=== PATIENT | male | born 1960 | race Caucasian/White ===

== ENCOUNTER 2016-11-27 20:55 | Emergency (ER) | payer OTHER ==
[~2016-11-27 20:55] MED LIST: ATIVAN0.5 M1 PO; ATORVASTATIN CA20 M1 PO; ESCITALOPRAM OX10 MG PO; FENOFIBRIC ACI135 M1 PO; FOLIC ACID1 M1 PO; HALOPERIDOL1 M1 PO; LEVOTHYROXINE200 MC1 PO; LORAZEPAM1 M1 PO; LOSARTAN POTASS50 M1 PO; METFORMIN HCL500 M4 PO; NALTREXONE HCL50 M1 PO; OMEPRAZOLE20 M2 PO; ONE DAILY MULT1 EAC2 PO; SLOW-MAG71.5 MG PO; TRAZODONE HCL50 M1 PO; VITAMIN B-1100 MG PO
--- NOTE | 2016-11-27 20:57 | ED PSYCHIATRIC COMPLAINT ---
History of Present Illness General Chief Complaint: ETOH/Drug Related Complaint Stated Complaint: ETOH Source: patient Exam Limitations: no limitations Vital Signs & Intake/Output Vital Signs & Intake/Output Vital Signs Date Time Temp Pulse Resp B/P Pulse O2 O2 Flow FiO2 Ox Delivery Rate 11/28 0607 98.6 100 18 166/75 95 Room Air 11/28 0236 112 18 147/77 11/28 0129 99.1 115 18 164/89 11/28 0109 99.1 115 18 164/89 96 Room Air 11/27 2242 99.1 90 18 145/70 97 Room Air 11/27 2118 Room Air 11/27 2101 98.3 116 16 142/75 97 Room Air Allergies Coded Allergies: shellfish derived (Severe, STOMACH ACHES 06/27/16) Reconcile Medications Atorvastatin Calcium 20 MG TABLET 1 TAB PO DAILY HEART HEALTH (Reported) Fenofibric Acid (Choline) (Fenofibric Acid) 135 MG CAPSULE.DR 1 CAP PO DAILY SUPPLEMENT (Reported) Levothyroxine Sodium (Synthroid) 300 MCG TABLET 1 TAB PO DAILY THYROID HEALTH (Reported) Metformin HCl (Metformin HCl ER) 500 MG TAB.ER.24H 2 TAB PO BID DIABETES ( Reported) Naltrexone HCl 50 MG TABLET 1 TAB PO DAILY UNKNOWN (Reported) Triage Note: PT BIBA FROM HOME FOR ETOH INTOXICATION. PT'S CALLED ER AHEAD OF TRANSPORT. PT DENIES SI/HI. PT IS CALM AND COOPERATIVE AT THIS TIME. Triage Nurses Notes Reviewed? yes Onset: Abrupt Duration: hour(s): (FEW) Timing: single episode today Severity: moderate Associated Symptoms: INTOXICATED HPI: 56 year old male history of alcoholism, previous attempt of suicide in June 2016 he presents via EMS from home for chief complaint of alcohol intoxication. Admits to drinking 1 pint daily for the last 5 days. He denies feeling suicidal or homicidal. Denies any pill ingestion. He states that his called because he was intoxicated. 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 He states his alcoholism is not interrupted with his day-to-day work. (VICENTA HARDY,LATESHA) Past History Medical History Any Pertinent Medical History? 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 No (LATESHA FORD MD) Review of Systems Review of Systems Constitutional: Denies: chills, fever. EENTM: Reports: no symptoms. Respiratory: Reports: no symptoms. Cardiovascular: Denies: chest pain. GI: Denies: abdominal pain. Genitourinary: Reports: no symptoms. Musculoskeletal: Reports: no symptoms. Skin: Reports: no symptoms. Neurological/Psychological: Denies: anxiety, depressed. Hematologic/Endocrine: Denies: bruising, bleeding, polyuria, polydipsia. Immunologic/Allergic: Denies: splenectomy. All Other Systems: Reviewed and Negative (LATESHA FORD MD) Physical Exam Physical Exam General Appearance: well developed/nourished, alert, awake, mild distress, intoxicated Head: atraumatic Eyes: Bilateral: PERRL, EOMI. Ears, Nose, Throat: normal pharynx, normal ENT inspection, hearing grossly normal Neck: normal inspection, supple Respiratory: normal breath sounds Cardiovascular: regular rate/rhythm Gastrointestinal: soft, non-tender Extremities: normal range of motion Neurological/Psychiatric: awake, alert, calm Appearance/Memory/Insight: disheveled, impaired insight Behavoir/Eye Contact/Speech: cooperative, decreased rate of speech, good eye contact Thoughts/Hallucinations: no apparent hallucination Skin: intact, normal color, warm/dry SAD PERSONS Done? patient not suicidal (LATESHA FORD MD) Progress Differential Diagnosis: ALCOHOL ABUSE, ALCOHOL INTOXICATION Plan of Care: Orders Procedure Date/time Status Regular Diet 11/28 B Active URINE DRUGS OF ABUSE 11/27 2121 Complete ACETOMINOPHEN 11/27 2121 Complete SALICYLATE 11/27 2121 Complete ETHANOL 11/27 2121 Complete COMPREHENSIVE METABOLIC PANEL 11/27 2121 Complete CBC WITHOUT DIFFERENTIAL 11/27 2121 Complete Laboratory Tests 11/27/162131: Anion Gap 16, Estimated GFR > 60, BUN/Creatinine Ratio 19.0, Glucose 142 H, Calcium 9.8, Total Bilirubin 0.8, AST 103 H, ALT 76 H, Alkaline Phosphatase 57 , Total Protein 7.2, Albumin 4.4, Globulin 2.8, Albumin/Globulin Ratio 1.6, CBC w Diff NO MAN DIFF REQ, RBC 5.28, MCV 89.4, MCH 30.6, RDW 12.7, MPV 6.2 L, Gran % 73.5, Lymphocytes % 19.5 L, Monocytes % 5.3, Eosinophils % 1.3, Basophils % 0.4, Absolute Granulocytes 7.5 H, Absolute Lymphocytes 2.0, Absolute Monocytes 0.5, Absolute Eosinophils 0.1, Absolute Basophils 0, PUBS MCHC 34.3, Salicylates < 1.0, Acetaminophen < 10.0 L, Serum Alcohol 407.0 11/27/165: Urine Opiates Screen < 100.00, Methadone Screen < 40, Barbiturate Screen < 60, Ur Phencyclidine Scrn < 6.00, Amphetamines Screen < 100, U Benzodiazepines Scrn < 85, Urine Cocaine Screen < 50, Urine Cannabis Screen < 5.00 LABS ORDERED. PATIENT DENIES SI/HI. HE SPECIFICALLY DENIES ANY OVERDOSE. ALCOHOL 400. PATIENT REQUESTING SOMETHING TO HELP HIM SLEEP. ATIVAN 2 MG GIVEN. STILL AWAKE, BENADRYL 50 MG ORDERED. 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 The patient is currently awake alert and exhibits a stable gait. His speech is clear and he is without specific complaint. He denies SI or HI. He declined further evaluation here in the emergency department. He wishes to return home. He will take a cab. He states his refused to pick him up but he can stay in and in-laws apartment temporarily in case tempers flare at home. (TERESA HARDY,TOMMY Shaw) Departure Departure Condition: Stable Referrals: LEODAN CORADO MD (PCP/Family) Departure Forms: Customer Survey General Discharge Information (LATESHA FORD MD) Departure Disposition: HOME OR SELF CARE Clinical Impression Primary Impression: Alcohol intoxication Qualifiers: Complication of substance-induced condition: uncomplicated Qualified Code: F10.120 - Alcohol abuse with intoxication, uncomplicated Additional Instructions: Try to cut down on your drinking. Consider detox program. Follow-up with your primary care physician this week for general medical evaluation. Return if any concerns or sudden worsening. (TERESA HARDY,TOMMY Shaw)
[2016-11-27] MEDS ORDERED: ATORVASTATIN CA20 M1 PO (21:39)
[2016-11-27] MEDS ORDERED: FENOFIBRIC ACI135 M1 PO (21:40)
[2016-11-27 21:42] LABS: ABSOLUTE BASOPHIL COUNT 0 /CUMM (0.0-0.2); ABSOLUTE EOSINOPHIL COUNT 0.1 /CUMM (0.0-0.7); ABSOLUTE GRANULOCYTE CT 7.5 /CUMM (1.4-6.5); ABSOLUTE MONOCYTE COUNT 0.5 /CUMM (0.10-0.60); BASOPHIL % 0.4 % (0.0-2.0); EOSINOPHIL % 1.3 % (0-5); GRANULOCYTE % 73.5 % (42.2-75.2); HEMATOCRIT 47.2 % (42-52); MEAN CORPUSCULAR HGB 30.6 PG (27.0-31.0); MEAN CORPUSCULAR HGB CONC 34.3 G/DL (33.0-37.0); MEAN CORPUSCULAR VOLUME 89.4 FL (80.0-94.0); MEAN PLATELET VOLUME 6.2 FL (7.4-10.4); PLATELET COUNT 224 /CUMM (130-400); RBC DISTRIBUTION WIDTH 12.7 % (11.5-14.5); RED BLOOD CELL CT 5.28 /CUMM (4.70-6.10); WHITE BLOOD CELL COUNT 10.2 /CUMM (4.8-10.8)
[2016-11-27] MEDS ORDERED: SYNTHROID300 MCG PO (21:42)
[2016-11-27] MEDS ORDERED: METFORMIN HCL500 M4 PO (21:44)
[2016-11-28 10:55] VITALS: BP 160/72
== END 2016-11-28 11:44 ==
LOC: ERH 20:55
PROVIDERS: Emergency Medicine
DX: F10.129 Alcohol abuse with intoxication, unspecified (principal)
CPT/HCPCS: 80307; G0480

== ENCOUNTER 2017-01-10 09:36 | Emergency (ER) | payer OTHER ==
[~2017-01-10] VITALS: Ht 182.9 cm; Wt 102.1 kg
[~2017-01-10 09:36] MED LIST changes: +SYNTHROID300 MCG PO
--- NOTE | 2017-01-10 10:00 | ED CARDIAC/CP/PALPITATIONS ---
See Addendum History of Present Illness General Chief Complaint: ETOH/Drug Related Complaint Stated Complaint: PALPITATIONS Source: patient, old records Exam Limitations: no limitations Vital Signs & Intake/Output Vital Signs & Intake/Output Vital Signs Date Time Temp Pulse Resp B/P B/P Pulse O2 O2 Flow FiO2 Mean Ox Delivery Rate 01/11 0834 98.1 78 16 152/70 05/ 0829 98.1 78 16 152/70 98 Room Air 01/11 0707 97.1 84 16 162/88 98 Room Air 01/11 0706 97.1 84 16 162/88 05/ 0537 97.1 61 18 138/80 05/ 0532 97.1 61 18 138/80 95 Room Air 05/ 0400 83 136/68 05/ 0400 97.0 83 18 136/68 98 Room Air 05/ 0200 80 18 141/60 05/ 0200 80 18 141/60 98 Room Air / 0008 97.5 78 18 136/72 05/ 0006 97.5 78 18 136/72 97 Room Air 01/10 2155 97.7 83 18 122/54 01/10 2155 97.7 83 18 122/54 98 Room Air 01/10 1949 97.5 77 18 127/59 04 1946 97.5 77 20 127/59 97 Room Air 01/10 1804 97.8 72 22 122/72 01/10 1802 97.8 72 22 122/72 96 Room Air 01/10 1735 97.3 64 20 124/60 01/10 1708 97.3 64 20 124/60 97 Room Air 01/10 1600 97.1 110 20 158/89 01/10 1537 97.1 110 20 158/89 95 Room Air 01/10 1449 96.6 01/10 1202 96.6 107 18 150/98 01/10 1202 96.6 107 18 150/98 97 Room Air 01/10 1033 98.4 113 20 170/100 01/10 0945 98.4 113 20 170/100 97 Room Air ED Intake and Output 01/11 0000 01/10 1200 Intake Total Output Total Balance Patient 225 lb Weight Weight Reported by Patient Measurement Method Allergies Coded Allergies: shellfish derived (Severe, STOMACH ACHES 06/27/16) Reconcile Medications Atorvastatin Calcium 20 MG TABLET 1 TAB PO DAILY HEART HEALTH (Reported) Fenofibric Acid (Choline) (Fenofibric Acid) 135 MG CAPSULE. 1 CAP PO DAILY SUPPLEMENT (Reported) Levothyroxine Sodium (Synthroid) 300 MCG TABLET 1 TAB PO DAILY THYROID HEALTH (Reported) Metformin HCl (Metformin HCl ER) 500 MG TAB.ER.24H 2 TAB PO BID DIABETES ( Reported) Naltrexone HCl 50 MG TABLET 1 TAB PO DAILY UNKNOWN (Reported) Triage Note: PT TO C/O "I JUST DON'T FEEL RIGHT, MY HEART IS POUNDING". STARTED THIS AM. PT STATES HE HAS BEEN DRINKING MORE THAN USUAL. DRINKS 2 PINTS OF VODKA DAILY, LAST DRINK YESTERDAY. DENIES DRUG USE. STATES LAST ETOH DETOX WAS JULY. DENIES SEIZURES WITH DETOX. PT STATES HE WANTS DETOX TODAY. Triage Nurses Notes Reviewed? yes HPI: Patient woke up this morning and just did not feel well. Patient states that it feels like his heart is racing. Patient does admit to drinking more alcohol than normal lately. Patient denies any nausea vomiting. Patient denies any chest pain or shortness of breath. There is no orthopnea or dyspnea on exertion. There is no lightheadedness. Patient states that he has not really been eating over the past few days, that he is just been drinking alcohol. Patient is a diabetic but states that he has been compliant with his medications. (LOIS HARDY,PAVEL Dumont) Past History Travel History Traveled to [place] past 21 day No Medical History Any Pertinent Medical History? 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 No (LOIS HARDY,PAVEL Dumont) Review of Systems Review of Systems Constitutional: Reports: no symptoms. EENTM: Reports: no symptoms. Respiratory: Reports: no symptoms. Cardiovascular: Reports: see HPI, palpitations. GI: Reports: no symptoms. Genitourinary: Reports: no symptoms. Musculoskeletal: Reports: no symptoms. Skin: Reports: no symptoms. Neurological/Psychological: Reports: see HPI. Hematologic/Endocrine: Reports: no symptoms. Immunologic/Allergic: Reports: no symptoms. All Other Systems: Reviewed and Negative (LOIS HARDY,PAVEL Dumont) Physical Exam Physical Exam General Appearance: well developed/nourished, alert, awake, anxious, mild distress Head: atraumatic, normal appearance Eyes: Bilateral: PERRL, EOMI. Ears, Nose, Throat: normal pharynx, normal ENT inspection, hearing grossly normal Neck: normal inspection, supple, full range of motion Respiratory: normal breath sounds, chest non-tender, no respiratory distress, lungs clear Cardiovascular: normal peripheral pulses, tachycardia Gastrointestinal: normal bowel sounds, soft, non-tender, no organomegaly Back: normal inspection, normal range of motion Extremities: normal inspection, normal capillary refill, normal range of motion, no edema Neurologic/Psych: no motor/sensory deficits, awake, alert, oriented x 3, normal gait, normal mood/affect Skin: intact, normal color, warm/dry Lymphatic: no anterior cervical celso Core Measures ACS in differential dx? No Severe Sepsis Present: No Septic Shock Present: No (LOIS HARDY,PAVEL Dumont) Progress Differential Diagnosis: AMI, atrial fibrillation, hyperthyroid, myocarditis, pericarditis, PVCs/PACs Plan of Care: Orders Procedure Date/time Status Regular Diet 01/10 D Active CIWA 01/10 1000 Active URINE DRUGS OF ABUSE 01/10 1000 Complete THYROID STIMULATING HORMONE 01/10 1000 Complete TROPONIN LEVEL 01/10 1000 Complete ETHANOL 01/10 1000 Complete COMPREHENSIVE METABOLIC PANEL 01/10 1000 Complete CBC WITHOUT DIFFERENTIAL 01/10 1000 Complete EKG 01/10 0938 Active Current Medications Sig/Darrick Start time Last Medication Dose Stop Time Status Admin Lorazepam 1 MG Q6P PRN 01/10 1600 AC (Ativan) Laboratory Tests 01/10/17 1107: Urine Opiates Screen < 100.00, Methadone Screen < 40, Barbiturate Screen < 60, Ur Phencyclidine Scrn < 6.00, Amphetamines Screen < 100, U Benzodiazepines Scrn < 85, Urine Cocaine Screen < 50, Urine Cannabis Screen 28.40 01/10/17 1025: Anion Gap 16, Estimated GFR > 60, BUN/Creatinine Ratio 15.6, Glucose 177 H, Calcium 8.5, Total Bilirubin 1.2, AST 195 H, ALT 105 H, Alkaline Phosphatase 56, Troponin I < 0.01, Total Protein 7.1, Albumin 4.5, Globulin 2.6, Albumin/ Globulin Ratio 1.7, TSH 0.991, CBC w Diff MAN DIFF ORDERED, RBC 4.90, MCV 88.9, MCH 31.1 H, RDW 12.6, MPV 6.3 L, Gran % 85.1 H, Lymphocytes % 10.8 L, Monocytes % 3.9, Eosinophils % 0.1, Basophils % 0.1, Absolute Granulocytes 8.4 H, Absolute Lymphocytes 1.1 L, Absolute Monocytes 0.4, Absolute Eosinophils 0, Absolute Basophils 0, Platelet Estimate VERIFIED BY SMEAR, Normocytic RBCs VERIFIED, Normochromic RBCs VERIFIED, PUBS MCHC 35.0, Serum Alcohol 171.0 Initial ED EKG: NSR, no ST T wave changes Prior EKG: unchanged Hand-Off Endorsed To: CHEPE MILLAN MD Endorsed Time: 190 Pending: other (RE-EVAL ) Comments: Patient does not meet criteria for admission for detox. Patient has been given the information for rehabilitation facilities. Patient will stay here tonight and get treated as needed and in the morning he will call rehabilitation facilities. (PAVEL ABREU MD) Hand-Off Endorsed To: TOMMY TRAMMELL DO Endorsed Time: 0700 Pending: other (CHEPE MILLAN MD) Departure Departure Disposition: STILL A PATIENT Condition: Stable Clinical Impression Primary Impression: Alcohol withdrawal Referrals: LEODAN CORADO MD (PCP/Family) Departure Forms: Customer Survey General Discharge Information (PAVEL ABREU MD) Departure Comments 01/11/17 7 AM Patient signed out to me by Dr. Millan. (TOMMY TRAMMELL DO) Critical Care Note Critical Care Note Critical Care Time: non-applicable (PAVEL ABREU MD)
[2017-01-10 10:37] LABS: ABSOLUTE BASOPHIL COUNT 0 /CUMM (0.0-0.2); ABSOLUTE EOSINOPHIL COUNT 0 /CUMM (0.0-0.7); ABSOLUTE GRANULOCYTE CT 8.4 /CUMM (1.4-6.5); ABSOLUTE LYMPH COUNT 1.1 /CUMM (1.2-3.4); ABSOLUTE MONOCYTE COUNT 0.4 /CUMM (0.10-0.60); BASOPHIL % 0.1 % (0.0-2.0); EOSINOPHIL % 0.1 % (0-5); GRANULOCYTE % 85.1 % (42.2-75.2); HEMATOCRIT 43.5 % (42-52); MEAN CORPUSCULAR HGB 31.1 PG (27.0-31.0); MEAN CORPUSCULAR VOLUME 88.9 FL (80.0-94.0); MEAN PLATELET VOLUME 6.3 FL (7.4-10.4); PLATELET COUNT 178 /CUMM (130-400); RBC DISTRIBUTION WIDTH 12.6 % (11.5-14.5); WHITE BLOOD CELL COUNT 9.9 /CUMM (4.8-10.8)
[2017-01-11 12:59] VITALS: BP 171/86
[2017-01-11] MEDS ORDERED: ATIVAN1 M1 PO (13:22)
== END 2017-01-11 13:42 ==
LOC: ERH 09:36
PROVIDERS: Emergency Medicine
DX: F10.239 Alcohol dependence with withdrawal, unspecified (principal); E11.9 Type 2 diabetes mellitus without complications; E03.9 Hypothyroidism, unspecified; Z79.84 Long term (current) use of oral hypoglycemic drugs
CPT/HCPCS: 80307; 93005; 93010; 96374; 96375; G0480; J2405